=== PATIENT | male | born 1960 | race Caucasian/White ===

== ENCOUNTER 2020-07-19 08:06 | Outpatient (CLI) | payer MEDICAID, SELFPAY ==
--- NOTE | 2020-07-19 08:30 | XR_ITS ---
WS: [id number] HIP WITH PELVIS RIGHT TECHNIQUE: 3 views of the right hip with pelvis CLINICAL INFORMATION: chronic right hip pain COMPARISON: None. FINDINGS: Postoperative changes lower lumbar spine. Mild degenerative arthritis both hips with joint space narr owing. Pelvic phleboliths. Normal pubic rami. No acute fractures. Calcification along the deep trochanteric bursae bilaterally can be seen with tro chanteric bursitis and/or gluteus medius tendinitis XR/XR hip RT 2-3V wo/w pel* [id number] IMPRESSION: 1. Mild degenerative arthritis both hips. No acute fractures. 2. Ossification along the deep trochanteric bursae bilaterally can be seen wit h trochanteric bursitis and/or gluteus medius tendinitis
== END 2020-07-19 08:07 | disposition home or self-care (01) ==
LOC: RADWPI 08:07
PROVIDERS: PCP Family Medicine; Visit Provider Family Medicine
DX: M16.0 Bilateral primary osteoarthritis of hip; G89.29 Other chronic pain
CPT/HCPCS: 73502

== ENCOUNTER → 2020-08-11 09:09 | Outpatient (BNVA) | payer MEDICAID, SELFPAY | PROVIDERS: PCP Family Medicine; Visit Provider Family Medicine | DX: Z11.59 Encounter for screening for other viral diseases (principal) | CPT/HCPCS: 87635 ==

== ENCOUNTER 2020-08-15 09:42 | Outpatient (CLI) | payer MEDICAID, SELFPAY ==
--- NOTE | 2020-08-15 14:10 | PFTS_ITS ---
Date of Study:08/15/20 Date of Dictation: MECHANICS: Forced vital capacity (FVC) is normal. Forced expiratory volume in one second (FEV1) is reduced. FEV1/FVC is reduced. FLOW VOLUME LOOP: Reduced lateral lung volumes. LUNG VOLUMES: Not measured DIFFUSING CAPACITY FOR CARBON MONOXIDE: Not measured INTERPRETATION: The postbronchodilator spirometry is consistent with moderate airflow obstruction. There is no significant postbronchodilator response. MTDD
== END 2020-08-15 09:43 | disposition home or self-care (01) ==
LOC: RT 09:44
PROVIDERS: PCP Family Medicine; Visit Provider Family Medicine
DX: R06.2 Wheezing (principal)
CPT/HCPCS: 94060; J7611

== ENCOUNTER → 2020-08-17 13:33 | Outpatient (BNVA) | payer MEDICAID, SELFPAY | PROVIDERS: PCP Family Medicine; Referring Provider Family Medicine; Visit Provider Anesthesiology Pain Medicine | DX: M25.551 Pain in right hip (principal); M19.90 Unspecified osteoarthritis, unspecified site; M54.16 Radiculopathy, lumbar region; M96.1 Postlaminectomy syndrome, not elsewhere classified; R06.2 Wheezing; F17.219 Nicotine dependence, cigarettes, with unspecified nicotine-induced disorders | CPT/HCPCS: 99204 ==

== ENCOUNTER 2020-08-22 11:15 | Outpatient (CLI) | payer MEDICAID, SELFPAY ==
--- NOTE | 2020-08-22 11:30 | XR_ITS ---
WS: [id number] LUMBAR SPINE: 5 VIEWS TECHNIQUE: AP, obliques, lateral and L5-S1 spot. HISTORY: pain COMPARISON: 05/18/2019 Prior lumbar fusion at L5-S1 with interbody spacer mild RIGHT convex curvature lumbar spine and mild straightening. Foraminal narrowing is mild at L4-5 and L5-S1. L5 anterolisthesis by 5 mm. No change i n position of the hardware. Multilevel mild disc space narrowing and desiccation. Small endplate osteophytes at all levels. SI joints are symmetric bilaterally. No soft tissue abnormalities. XR/XR lumbar spine min 4V [id number] IMPRESSION: 1. Moderate spondylitic changes in the lumbar spine. 2. Fusion hardware at L5-S1 is very similar in appearance to the prior study w ith no interval change. 3. Mild degenerative RIGHT convex curvature.
== END 2020-08-22 11:16 | disposition home or self-care (01) ==
LOC: RADWPI 11:18
PROVIDERS: PCP Family Medicine; Visit Provider Anesthesiology Pain Medicine
DX: M54.5 Low back pain (principal); M25.551 Pain in right hip; M96.1 Postlaminectomy syndrome, not elsewhere classified; F17.210 Nicotine dependence, cigarettes, uncomplicated
CPT/HCPCS: 20610; 72114; 77002; 77003; J1030; J3490

== ENCOUNTER → 2020-09-07 10:51 | Outpatient (BNVA) | payer MEDICAID, SELFPAY | PROVIDERS: PCP Family Medicine; Visit Provider Anesthesiology Pain Medicine | DX: M25.551 Pain in right hip (principal); F17.219 Nicotine dependence, cigarettes, with unspecified nicotine-induced disorders; R06.2 Wheezing; M19.90 Unspecified osteoarthritis, unspecified site; M96.1 Postlaminectomy syndrome, not elsewhere classified; M54.16 Radiculopathy, lumbar region; Z79.891 Long term (current) use of opiate analgesic | CPT/HCPCS: 99214 ==

== ENCOUNTER 2020-09-19 08:52 | Outpatient (CLI) | payer MEDICAID, SELFPAY ==
--- NOTE | 2020-09-19 08:57 | MR_ITS ---
WS: [id number] MRI LUMBAR SPINE WITH AND WITHOUT CONTRAST. HISTORY: Pain, leg numbness. COMPARISON: 07/04/2020 TECHNIQUE: Sagittal and axial multisequence imaging is submitted. Sagittal and axial T1 fat sat seque nces post-ProHance 13 cc IV. Mild increase in the upper thoracic kyphosis. Straightening of the normal lumbar lordosis. Prior posterior LEFT lumbar fusion at L5-S1. Anterior fu rayray hardware at L5-S1. There is also an interbody spacer at L5-S1. Edema within the adjacent endplat es at the L4-5 level. Mild disc space narrowing and desiccation throughout the lumbar spine but most significant at L5-S1. Conus terminates normally at L1-2 disc level. L1-L2: Mild annular disc bulging and osteophytic ridging. No central stenosis. Mild bilateral foramin al narrowing. L2-L3: Mild annular disc bulging and osteophytic ridging. Fluid in the facet joints bilaterally. No s ignificant stenosis. L3-L4: Moderate annular disc bulging with facet and ligamentum flavum hypertrophy. Mild encroachment of the disc into the subarticular recesses. No significant stenosis. Mild foraminal narrowing. L4-L5: L4 retrolisthesis by 4.4 mm. There is mild annular disc bulging and osteophytic ridging. Moder ate bilateral facet joint arthropathy. Very mild central stenosis with moderate to severe bilateral f oraminal stenosis, RIGHT greater than LEFT. Large posterior laminectomy defects at the L5 level. L5-S1: Large posterior laminectomy defects at the L5 level. No central stenosis. Mildly patulous thec al sac due to the laminectomies. Very mild narrowing of the foramen bilaterally, RIGHT greater than L EFT. No discitis or osteomyelitis. Enhancement of the gliosis at the laminectomy defects at L5. Mild enhan cement of the L3 nerve roots bilaterally in the foramina. MR/MR lumbar spine wo/w con [id number] IMPRESSION: 1. Prior anterior and LEFT posterior fusion hardware at L5-S1 with large poste rior laminectomy defects. No central stenosis at the L5-S1 level. 2. Moderate to severe bilateral foraminal stenosis and mild central stenosis a t L4-5. 3. Mild bilateral foraminal stenosis at L5-S1, RIGHT greater than LEFT.
== END 2020-09-19 08:53 | disposition home or self-care (01) ==
LOC: RADSHAW 08:54
PROVIDERS: PCP Family Medicine; Visit Provider Anesthesiology Pain Medicine
DX: M96.1 Postlaminectomy syndrome, not elsewhere classified (principal); Z98.890 Other specified postprocedural states; R20.0 Anesthesia of skin; M48.07 Spinal stenosis, lumbosacral region; M48.061 Spinal stenosis, lumbar region without neurogenic claudication; M43.27 Fusion of spine, lumbosacral region
CPT/HCPCS: 72158; A9579

== ENCOUNTER → 2020-09-21 08:39 | Outpatient (BNVA) | payer MEDICAID, SELFPAY | PROVIDERS: PCP Family Medicine; Visit Provider Anesthesiology Pain Medicine | DX: M51.17 Intervertebral disc disorders with radiculopathy, lumbosacral region (principal); M96.1 Postlaminectomy syndrome, not elsewhere classified; M19.90 Unspecified osteoarthritis, unspecified site; M79.651 Pain in right thigh; M25.551 Pain in right hip; R06.2 Wheezing; F17.219 Nicotine dependence, cigarettes, with unspecified nicotine-induced disorders; Z79.891 Long term (current) use of opiate analgesic | CPT/HCPCS: 99214 ==

== ENCOUNTER → 2020-10-03 11:09 | Outpatient (BNVA) | payer MEDICAID, SELFPAY | PROVIDERS: PCP Family Medicine; Visit Provider Anesthesiology Pain Medicine | DX: G89.29 Other chronic pain (principal); M54.16 Radiculopathy, lumbar region; M79.651 Pain in right thigh; M25.551 Pain in right hip; M19.91 Primary osteoarthritis, unspecified site; M96.1 Postlaminectomy syndrome, not elsewhere classified; R06.2 Wheezing; F17.219 Nicotine dependence, cigarettes, with unspecified nicotine-induced disorders; Z79.891 Long term (current) use of opiate analgesic | CPT/HCPCS: 64483; 64484; 99212; J1100; J3490 ==

== ENCOUNTER → 2020-10-17 10:50 | Outpatient (BNVA) | payer MEDICAID, SELFPAY | PROVIDERS: PCP Family Medicine; Visit Provider Anesthesiology Pain Medicine | DX: G89.29 Other chronic pain (principal); M51.17 Intervertebral disc disorders with radiculopathy, lumbosacral region; M96.1 Postlaminectomy syndrome, not elsewhere classified; M19.90 Unspecified osteoarthritis, unspecified site; M79.651 Pain in right thigh; M25.551 Pain in right hip; R06.2 Wheezing; F17.219 Nicotine dependence, cigarettes, with unspecified nicotine-induced disorders; Z79.891 Long term (current) use of opiate analgesic | CPT/HCPCS: 99214 ==

== ENCOUNTER 2020-10-25 20:01 | Emergency (ER) | payer MEDICAID, SELFPAY ==
[2020-10-25 20:06] VITALS: BP 107/68; PULSE 77; RESP 18; TEMP 36.3; O2SAT 96; BMI 23.0
--- NOTE | 2020-10-25 20:09 | W.ED.BACK ---
HPI - Back Pain/Injury General: Chief Complaint: Back Pain/Injury Stated Complaint: Back pain Time Seen by Provider: 10/25/20 20:09 History of Present Illness: HPI Narrative: Patient is a 60-year-old male comes to the ED with acute on chronic back pain. Patient sees pain management clinic and was last seen on October 17. Patient has a history of lumbar spine fusion surgery. He states that yesterday he lifted something that was heavier and that he thinks he probably should not of. Today he is having increased lower back pain. Pain is rated a 10 out of 10. It starts in the right lower back and then pain radiates down into her right leg and stops at the knee. Denies any pelvic anesthesia, bladder or bowel incontinence. Associated symptoms: Deny abdominal pain, chills, dysuria, fatigue, fever(s), hematuria, nausea or vomiting Review of Systems Const: Denies: fever(s), chills or fatigue Eyes: Denies: change in vision or eye discomfort ENMT: Denies: throat pain, odynophagia, nasal discharge or nasal congestion Card: Denies: chest pain, palpitations, edema, swelling of feet/ankles, dyspnea on exertion or orthopnea Resp: Denies: dyspnea, productive cough or non-productive cough GI: Denies: abdominal pain, nausea, vomiting, diarrhea, constipation or hematochezia : Denies: flank pain, difficulty urinating, dysuria or hematuria Musc: Reports: back pain; Denies: neck pain or extremity swelling Skin/Breast: Denies: rash or new lesions Neuro: Denies: headache(s), numbness in extremities or weakness in extremities PFS ED PFSH: Medical History Chronic low back pain Right thigh pain Surgical History History of back surgery He has L1-S5 fused in [place] Social History Smoking and tobacco status: current every day smoker cigarettes Packs smoked per day: 1.5 Alcohol intake: current Alcohol intake frequency: 3 or more drinks per day Alcohol type: beer Lives independently: Yes History of recent travel: No Physical Exam Const: COMMON NORMALS: no acute distress, patient oriented x3 and alert GENERAL APPEARANCE: cooperative and comfortable HENMT: COMMON NORMALS: normocephalic HEAD & SCALP: normocephalic MOUTH: Normal oral and palatal mucosa present THROAT: posterior oropharynx normal and uvula midline Neck/C-Spine: COMMON NORMALS: supple GENERAL: Yes normal visual inspection Resp: COMMON NORMALS: normal respiratory effort, No retractions, No use of accessory muscles and clear to auscultation bilaterally AUSCULTATION: clear to auscultation bilaterally Cardio: COMMON NORMALS: regular rate, regular rhythm, S1 normal heart sound present, S2 normal heart sound present, No gallops present (Cardio), No clicks present (Cardio), No murmurs present (Cardio) and Peripheral pulses 2+ throughout RATE: regular rate RHYTHM: regular rhythm HEART SOUNDS: S1 normal heart sound present and S2 normal heart sound present PERIPHERAL PULSES: Peripheral pulses 2+ throughout GI: COMMON NORMALS: Normal to inspection, nondistended, normoactive bowel sounds present, Soft to palpation, non-tender and no masses PALPATION: Yes Soft to palpation : COMMON NORMALS: Yes no CVA tenderness BLADDER/KIDNEY EXAM: Yes no CVA tenderness Back/Pelvis: COMMON NORMALS: no CVA tenderness LUMBAR SPINE/LOWER BACK: Yes pain with ROM, No lumbar spinal tenderness and Yes paraspinal muscle tenderness Extremity: COMMON NORMALS: normal to inspection Neuro: COMMON NORMALS: patient oriented x3 and moves all extremities SENSORIUM/ORIENTATION: Yes alert Skin: GENERAL SKIN EXAM: dry skin Course Vital Signs: Vital signs: Vital Signs Temperature 97.4 F L 10/25/20 20:06 Pulse Rate 77 10/25/20 20:06 Respiratory Rate 18 10/25/20 20:52 Blood Pressure 107/68 10/25/20 20:06 Pulse Oximetry 98 10/25/20 20:52 MDM - Back Pain/Injury MDM Narrative: Medical decision making narrative: Patient is a 60-year-old male with acute on chronic lower back pain. Patient sees pain management for lower back pain. 2 days ago patient lifted something heavy that he probably showed no evidence ever since then he said lower back pain that radiates down into right leg. No cauda equina symptoms. Patient was given a shot of morphine while here in the ED and sent home with a prescription for Medrol Dosepak. He was told to continue taking his previously prescribed pain meds and muscle relaxer to help with symptoms. Return to ED precautions given. Follow-up with pain management at next scheduled appointment. Patient understood agree with plan. Discharge Plan Discharge Patient Disposition: Home Clinical Impression: Lumbar radiculopathy Chronic lower back pain Qualifiers: Back pain laterality: bilateral Sciatica presence: with sciatica Sciatica laterality: sciatica of right side Qualified Code(s): M54.41 - Lumbago with sciatica, right side Condition: Stable Prescriptions: New methylprednisolone 4 mg tablets,dose pack See Rx Instructions .ROUTE .COMPLEX Qty: 21 RF: 0 No Action tizanidine 4 mg tablet 4 mg PO BID PRN (Reason: muscle spasticity) Qty: 60 RF: 0 tramadol 50 mg tablet 50 mg PO BID PRN (Reason: pain) 30 Days Qty: 60 RF: 0 gabapentin 600 mg tablet 600 mg PO TID Qty: 90 RF: 0 albuterol sulfate [ProAir HFA] 90 mcg/actuation HFA aerosol inhaler 2 puff INHALATION QID PRN (Reason: shortness of breath or wheezing) Qty: 8.5 RF: 5 budesonide-formoterol [Symbicort] 160-4.5 mcg/actuation HFA aerosol inhaler 2 puff INHALATION BID Qty: 10.2 RF: 5 Spiriva with HandiHaler 18 mcg capsule, w/inhalation device 1 cap inhalation DAILY Qty: 30 RF: 3 meloxicam [Mobic] 15 mg tablet 15 mg PO DAILY Qty: 30 RF: 1 Discharge Orders: Discharge ED (Routine); Ordered 10/25/20 Ordered By: Gio Cotton Referrals: Helen Chanel DO [Primary Care Provider] - Discharge Diet: Regular Discharge Activity: Increase activity as tolerated Patient Instructions: Lumbar Radiculopathy (ED) Activity Restrictions/Additional Instructions: Follow-up with medical provider as directed. Take medications as prescribed. Continue taking all other previously prescribed pain medications. Rest and apply ice or heat to lower back to help with symptoms. Return to the ER or your medical provider if condition worsens. Please read and understand discharge instructions. If any questions, please ask. Coding Level of Care Code ED [employer] for Brianna Fwd Exam Comprehensive
[2020-10-25 20:52] VITALS: RESP 18; O2SAT 98
[2020-10-25] MEDS: morphine 4 mg/mL SDV 1 mL IM (20:52)
[2020-10-25] MEDS: HYDROcodone-acetaminophen 7.5-325 mg Tablet 2 TAB PO (20:52)
[2020-10-25] MEDS: predniSONE 20 mg Tablet 60 MG PO (20:53)
== END 2020-10-25 21:01 | disposition home or self-care (01) ==
LOC: ER 20:47
PROVIDERS: Emergency Provider Physician Assistant; PCP Family Medicine
DX: M54.41 Lumbago with sciatica, right side (principal); G89.29 Other chronic pain; M54.16 Radiculopathy, lumbar region; F17.210 Nicotine dependence, cigarettes, uncomplicated
CPT/HCPCS: 12345; 96372; 99281; 99283; J2270; J7512

== ENCOUNTER → 2020-11-14 08:42 | Outpatient (BNVA) | payer MEDICAID, SELFPAY | PROVIDERS: PCP Family Medicine; Visit Provider Anesthesiology Pain Medicine | DX: G89.29 Other chronic pain (principal); M25.562 Pain in left knee; M48.062 Spinal stenosis, lumbar region with neurogenic claudication; M51.17 Intervertebral disc disorders with radiculopathy, lumbosacral region; M96.1 Postlaminectomy syndrome, not elsewhere classified; M19.90 Unspecified osteoarthritis, unspecified site; M79.651 Pain in right thigh; M25.551 Pain in right hip; R06.2 Wheezing; F17.219 Nicotine dependence, cigarettes, with unspecified nicotine-induced disorders; Z79.891 Long term (current) use of opiate analgesic | CPT/HCPCS: 20610; 99214; 99215; J1030; J3490 ==

== ENCOUNTER → 2020-11-24 09:49 | Outpatient (BNVA) | payer MEDICAID, SELFPAY | PROVIDERS: PCP Family Medicine; Referring Provider Anesthesiology Pain Medicine; Visit Provider Orthopaedic Surgery | DX: M54.16 Radiculopathy, lumbar region (principal); M25.569 Pain in unspecified knee | CPT/HCPCS: 72114; 73560; 73565 ==

== ENCOUNTER → 2020-12-05 10:03 | Outpatient (BNVA) | payer MEDICAID, SELFPAY | PROVIDERS: PCP Family Medicine; Referring Provider Orthopaedic Surgery; Visit Provider Orthopaedic Surgery | DX: Z01.812 Encounter for preprocedural laboratory examination (principal); M25.569 Pain in unspecified knee; M54.16 Radiculopathy, lumbar region | CPT/HCPCS: 87635 ==

== ENCOUNTER 2020-12-11 09:38 | Day surgery (SDC) | payer MEDICAID, SELFPAY ==
[2020-12-08 13:35] VITALS: BMI 23.0
--- NOTE | 2020-12-11 | SCC_ITS ---
Procedure Done: L3/4 Laminectomy with bilateral decompression L4/5 Laminectomy with bilateral decompression 28.8 seconds of fluoroscopic guidance, for a cumulative dose of 5.97mGy, was provided to Dr. French by the radiology department. C-arm images of the lumbar spine were saved for the patient's permanent record. [facility]
[2020-12-11] MEDS: sodium chloride 0.9% 1,000 ML 30 ML IV (10:13)
[2020-12-11 10:15] VITALS: BP 127/96; PULSE 79; RESP 18; TEMP 36.2; O2SAT 97
--- NOTE | 2020-12-11 10:27 | W.PM.OPSUD ---
Surgery/Procedure H&P Update DATE OF PROCEDURE: December 11, 2020 DATE H&P PERFORMED: 12/05/20 H&P UPDATE INFORMATION: I have reviewed H&P completed within last 30 days, I have examined patient prior to procedure and No changes to prior documentation PREOP DIAGNOSIS: lumbar stenosis PLANNED PROCEDURE: Operation Date: 12/11/20 11:20 Proposed Procedures p L 3/4 L4/5 BILATERAL DECOMPRESSION [id number] M48.061(Not Applicable) - Nelson French DO
--- NOTE | 2020-12-11 10:42 | P.ANESASSM_ITS ---
Pre-Anesthetic Assessment Pre-Anesthetic Assessment: Height/Weight: Height 1.63 m Weight 60.781 kg Temp Pulse Resp BP Pulse Ox 97.1 F L 79 18 127/96 97 12/11/20 10:15 12/11/20 10:15 12/11/20 10:15 12/11/20 10:15 12/11/20 10:15 Preop Diagnosis: lumbar stenosis Proposed Procedure: Operation Date: 12/11/20 11:20 Proposed Procedures p L 3/4 L4/5 BILATERAL DECOMPRESSION [id number] M48.061(Not Applicable) - Nelson French, DO Was Beta Randi taken within 24 hours: N/A Last intake: Intake Last Liquid Date 12/11/20 Last Liquid Time 07:00 Last Solid Date 12/10/20 Social: Social History: Alcohol and Tobacco Exam: Pre-Anes Outpt Exam: alert, oriented x 3 and regular rate & rhythm A dditional Exam Findings (including area of procedure): rhonchi Airway: Submandibular: WNL Cervical ROM: WNL MP: 2 Additional comments: edentulous Pulmonary: Pulmonary: COPD Musc/skel: Musc/skel: Lower Back Pain Comments: Chronic pain Anesthetic Plan: ASA status: 3 Anesthesia: General Risk of > 500 ml blood loss (7ml/kg in children): No Meds/Allergies Current Medications: Current Medications Generic Name Dose Route Start Last Admin Trade Name Freq PRN Reason Stop Dose Admin Sodium Chloride 1,000 mls @ 30 ml s/hr 12/11/20 10:00 12/11/20 10:13 Sodium Chloride 0.9% IV 12/12/20 09:59 30 mls/hr .Q24H THALIA Administration PFSH Anesthesia PFSH: Medical History Chronic low back pain Right thigh pain Surgical History History of back surgery He has L1-S5 fused in [place] Social History Smoking and tobacco status: current every day smoker cigarettes Packs smoked per day: 1.5 Alcohol intake: current Alcohol intake frequency: 0-2 Drinks per Day Alcohol type: beer Lives independently: Yes History of recent travel: No Data Anesthesia Cardiac Studies: No Data to Display
--- NOTE | 2020-12-11 11:20 | XR_ITS ---
WS: [id number] INTRAOPERATIVE TECHNIQUE: 5 Spot fluoroscopic images for intraoperative purposes. FLUOROSCOPY TIME: 28.8 seconds CLINICAL INFORMATION: BILATERAL DECOMPRESSION COMPARISON: None. FINDINGS: Localization marker over the L4-5 interspace dorsally Prior postoperative changes pedicle screw fixation L5-S1 with interbody fusion graft. Anterior screw fixation. Grade 1 anterolisthesis L5 on S1. XR/XR lumbar spine 2-3V* [id number] IMPRESSION: Images obtained for intraoperative purposes.
--- NOTE | 2020-12-11 12:23 | P.OP_ITS ---
Operative Report Date of procedure: December 11, 2020 Pre-op Diagnosis: lumbar stenosis Procedure Done: L3/4 Laminectomy with bilateral decompression L4/5 Laminectomy with bilateral decompression Surgeon: Nelson French Anesthesia: General Estimated blood loss (mL): 20 Condition: stable Disposition: PACU Procedure: L3/4 Laminectomy with bilateral decompression L4/5 Laminectomy with bilateral decompression Patient is brought to the operative suite. After undergoing anesthesia they are placed in the supine position. All areas of impingement are well padded. Patient is then prepped and draped in the normal sterile fashion. A skin incision is made over the L3/4/5 level. This is confirmed under c-arm guidance. A series of dilators are passed and the tubular retractor is docked on the L3 lamina. A bovie is used to clear the soft tissue off the lamina and the L 3/4 facet joint. A high speed marija is then used to perform the laminectomy and take down the medial aspect of the L 3/4 facet joint. A kerrison rongeure was then used to take down the remaining lamina and smooth the edged of the laminectomy up to the point where the ligamentum flavum attaches. Attention was then brought to the medial aspect of the facet joint. The remaining medial aspect of the superior and inferior aspect of the facet joint were taken down with the kerrison from the pedicle of L3 to L 4. The facet joint had significant hypertrophy. Attention was then brought to the Ligamentum Flavum. The ligament was taken down from the lamina of L3 to L4 and out medially to the remaining facet joint. The ligament was thick. The dura was then exposed. The dura was in good repair. The L3 nerve was then traced with a curette out the L3/4 foramen and found to be adequately decompressed. The L4 nerve was traced with a curette around the L4 pedicle. The lateral recess was opened with a kerrison helping to further decompress the L4 nerve. The tubular retractor was then tilted to the contralateral side. The bovie was used to take down the soft tissue on the spinous process. The high speed marija was used to take down the spinous process and then the contralateral lamina of L3. The kerrison rongeur was used to take down the remaining lamina to the point where the ligamentum flavum attached and the ligamentum flavum was taken down from L3 to L4. The kerrison rongeur was then used to reach across and take down the medial aspect of the contralateral L3/4 facet joint.The currete was used to trace the contralateral L3 nerve out the L3/4 foramen to make sure it was decompressed adequatesly and the L4 was traced around the L4 pedicle. The lateral recess was opened further with the kerrison to ensure the L4 is adequately decompressed. A series of dilators are passed and the tubular retractor is docked on the L4 lamina. A bovie is used to clear the soft tissue off the lamina and the L 4/5 f acet joint. A high speed marija is then used to perform the laminectomy and take down the medial aspect of the L 4/5 facet joint. A kerrison rongeure was then used to take down the remaining lamina and smooth the edged of the laminectomy up to the point where the ligamentum flavum attaches. Attention was then brought to the medial aspect of the facet joint. The remaining medial aspect of the superior and inferior aspect of the facet joint were taken down with the kerrison from the pedicle of L4 to L 5. The facet joint had significant hypertrophy. Attention was then brought to the Ligamentum Flavum. The ligament was taken down from the lamina of L4 to L5 and out medially to the remaining facet joint. The ligament was thick. The dura was then exposed. The dura was in good repair. The L3 nerve was then traced with a curette out the L4/5 foramen and found to be adequately decompressed. The L5 nerve was traced with a curette around the L5 pedicle. The lateral recess was opened with a kerrison helping to further decompress the L5 nerve. The tubular retractor was then tilted to the contralateral side. The bovie was used to take down the soft tissue on the spinous process. The high speed marija was used to take down the spinous process and then the contralateral lamina of L4. The kerrison rongeur was used to take down the remaining lamina to the point where the ligamentum flavum attached and the ligamentum flavum was taken down from L4 to L5. The kerrison rongeur was then used to reach across and take down the medial aspect of the contralateral L4/5 facet joint.The currete was used to trace the contralateral L3 nerve out the L3/4 foramen to make sure it was decompressed adequatesly and the L5 was traced around the L5 pedicle. The lateral recess was opened further with the kerrison to ensure the L5 is adequately decompressed. Wound is then irrigated copiously with saline and surgiflo is used to stop any bleeding. The tubular retractor is removed and the wound is closed with vicryl and monocryl suture. Glue is then used to protect the wound. A sterile dressing is then placed. Patient was then placed in the supine position and transferred to the PACU in stable condition.
[2020-12-11 12:32] VITALS: BP 174/91; PULSE 90; RESP 20; TEMP 36.3; O2SAT 100
[2020-12-11 12:35] VITALS: BP 162/89; PULSE 92; RESP 18; O2SAT 99
[2020-12-11 12:40] VITALS: BP 162/96; PULSE 94; RESP 17; O2SAT 100
[2020-12-11 12:45] VITALS: BP 184/99; PULSE 91; RESP 18; O2SAT 100
[2020-12-11 12:50] VITALS: BP 179/97; PULSE 90; RESP 18; TEMP 36.6; O2SAT 100
[2020-12-11] MEDS: HYDROcodone-acetaminophen 5-325 mg Tablet 1 TAB PO (13:26)
--- NOTE | 2020-12-11 14:45 | ANE.PACU2 ---
Inpatient post-anesthesia follow up: Airway intact: Yes Vital signs: Temperature 97.9 F Pulse Rate 90 Respiratory Rate 18 Blood Pressure 179/97 Pulse Oximetry 100 Oxygen Delivery Me thod Room Air Oxygen Flow Rate 8 Fraction of Inspir ed Oxygen Hydration adequate: Yes Nausea and vomiting: No Pain level: 3 Mental status: Baseline
== END 2020-12-11 14:02 | disposition home or self-care (01) ==
PROVIDERS: PCP Family Medicine; Visit Provider Orthopaedic Surgery
PROC: (CPT 63005; principal; 2020-12-11 11:10)
DX: M48.061 Spinal stenosis, lumbar region without neurogenic claudication (principal); J44.9 Chronic obstructive pulmonary disease, unspecified; F17.210 Nicotine dependence, cigarettes, uncomplicated; G89.29 Other chronic pain; M54.5 Low back pain; Z79.891 Long term (current) use of opiate analgesic
CPT/HCPCS: 63047; 63048; 12345; 72100; 76000; J0131; J0690; J1100; J2370; J2405; J2704; J3010; J3490; J7030

== ENCOUNTER → 2021-10-19 11:47 | Outpatient (BNVA) | payer MEDICARE, MEDICAID, SELFPAY | PROVIDERS: PCP Family Medicine; Visit Provider Family Medicine | DX: R35.1 Nocturia (principal); Z13.6 Encounter for screening for cardiovascular disorders | CPT/HCPCS: 80053; 80061; 84153; 85025 ==

== ENCOUNTER → 2021-11-01 09:29 | Outpatient (BNVA) | payer MEDICARE, MEDICAID, SELFPAY | PROVIDERS: PCP Family Medicine; Referring Provider Family Medicine; Visit Provider Orthopaedic Surgery | DX: M48.062 Spinal stenosis, lumbar region with neurogenic claudication (principal); Z98.890 Other specified postprocedural states | CPT/HCPCS: 72110 ==

== ENCOUNTER 2021-12-21 11:17 | Outpatient (CLI) | payer MEDICARE, MEDICAID, SELFPAY ==
--- NOTE | 2021-12-21 11:29 | MR_ITS ---
WS: [id number] MRI LUMBAR SPINE WITH AND WITHOUT CONTRAST. HISTORY: Bilateral hip pain. LEFT sciatic pain for one month. RIGHT hamstring pain. Prior lumbar surg cheryle January 2021. COMPARISON: 09/19/2020 TECHNIQUE: Sagittal and axial multisequence imaging is submitted. Sagittal and axial T1 fat sat seque nces post-MultiHance 13 cc IV. Posterior lumbar fusion at L5-S1 with anterior fusion hardware also at L5-S1 with an interbody spacer . There is a large laminectomy defect at the L5-S1 level. Mild straightening of the normal lumbar lordosis. 2 mm retrolisthesis of L2 and L3. Severe disc space narrowing at L4-5 and moderate at L5-S1. There is a small amount of reactive marrow edema along the endplates of L4 and L5 with mild progression since the prior study. Reactive marrow edema along the adjacent anterior endplates of L1-2. No acute fracture. Conus terminates normally at L1-2 disc level. L1-L2: Mild annular disc bulging and osteophytic ridging. Mild ligamentum flavum and facet arthritis. Very minimal bilateral foraminal narrowing. L2-L3: Mild diffuse annular disc bulging and facet arthritis. No focal disc protrusions or high-grade stenosis. Mild LEFT foraminal stenosis. L3-L4: Diffuse annular disc bulging and osteophytic ridging. Bilateral ligamentum flavum and facet hy pertrophy. Progression of central canal stenosis since the prior study. There is a small RIGHT hemila minectomy defect. Mild bilateral subarticular recess and foraminal stenosis with mild to moderate joy tral stenosis. L4-L5: Diffuse annular disc bulging. Mild retrolisthesis of the L4 vertebral body. There is disc bulg ing centrally contacting the ventral thecal sac but similar to the prior study. This disc does not en ghanshyam. Disc extends into the subarticular recesses bilaterally. Mild central stenosis with moderate b ilateral foraminal stenosis, RIGHT greater than LEFT due to disc and osteophyte and facet disease. Si milar to the prior study. Mild trefoil appearance of the thecal sac is developing and there is a post erior laminectomy defect. Nerve roots are slightly clumped within the thecal sac. L5-S1: Mild annular disc bulging and osteophytic ridging. Posterior laminectomy defect. Mild clumping of the nerve roots in the thecal sac. Mild bilateral foraminal stenosis. Similar to the prior study. No discitis or osteomyelitis. There is mild enhancement surrounding the facet joints at L3-4, L4-5 an d L5-S1. The central disc at L4-5 does not enhance. MR/MR lumbar spine wo/w con [id number] IMPRESSION: 1. Status post anterior and posterior lumbar fusion at L5-S1. Additional inter body spacers also present at this level. 2. No discitis or osteomyelitis. 3. Mild central stenosis with moderate bilateral foraminal stenosis RIGHT gre ater than LEFT at L4-5. Mild progression of the central stenosis since the prio r study. Posterior laminectomy defect is noted. 4. 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 5. Mild bilateral foraminal stenosis at L5-S1 with prior laminectomy defect po steriorly. 6. Reactive marrow edema along the endplates of L4 and L5 similar to the prior study. 7. Mild to moderate central stenosis at L3-4 with mild bilateral subarticular recess and foraminal stenosis. Central stenosis has progressed since 09/19/2020 .
[2021-12-21] MEDS: gadobenate dimeglumine 20 mL vial IV (12:58)
== END 2021-12-21 11:18 | disposition home or self-care (01) ==
LOC: RAD 11:25
PROVIDERS: PCP Family Medicine; Visit Provider Orthopaedic Surgery
DX: M48.062 Spinal stenosis, lumbar region with neurogenic claudication (principal); M25.551 Pain in right hip; M25.552 Pain in left hip; M48.07 Spinal stenosis, lumbosacral region
CPT/HCPCS: 72158

== ENCOUNTER → 2022-02-13 13:15 | Outpatient (BNVA) | payer MEDICARE, MEDICAID, SELFPAY | PROVIDERS: PCP Family Medicine; Visit Provider Orthopaedic Surgery | DX: J44.9 Chronic obstructive pulmonary disease, unspecified (principal) | CPT/HCPCS: 87635 ==

== ENCOUNTER 2022-03-13 06:00 | Outpatient (RCR) | payer MEDICARE, MEDICAID, SELFPAY | END 2022-04-02 23:59 | disposition home or self-care (01) | LOC: TPT 06:00 | PROVIDERS: PCP Family Medicine; Referring Provider Orthopaedic Surgery; Visit Provider Orthopaedic Surgery | DX: M48.062 Spinal stenosis, lumbar region with neurogenic claudication (principal) | CPT/HCPCS: 97032; 97110; 97140; 97163 ==

== ENCOUNTER 2022-04-03 06:00 | Outpatient (RCR) | payer MEDICARE, MEDICAID, SELFPAY | END 2022-04-17 23:59 | disposition home or self-care (01) | LOC: TPT 06:00 | PROVIDERS: PCP Family Medicine; Referring Provider Orthopaedic Surgery; Visit Provider Orthopaedic Surgery | DX: M48.062 Spinal stenosis, lumbar region with neurogenic claudication (principal) | CPT/HCPCS: 97032; 97110 ==

== ENCOUNTER → 2022-04-25 07:43 | Outpatient (BNVA) | payer MEDICARE, MEDICAID, SELFPAY | PROVIDERS: PCP Family Medicine; Visit Provider Orthopaedic Surgery | DX: M48.062 Spinal stenosis, lumbar region with neurogenic claudication (principal); Z98.1 Arthrodesis status | CPT/HCPCS: 99214 ==

== ENCOUNTER 2022-05-29 13:50 | Inpatient (IN) | payer MEDICARE, MEDICAID, SELFPAY ==
[2022-05-23 10:09] VITALS: BMI 20.9
--- NOTE | 2022-05-23 10:39 | ANES.PREANE2 ---
Pre-Anesthetic Assessment Height/Weight: Height 1.63 m Weight 55.338 kg Preop Diagnosis: Lumbar stenosis w/Neurogenic Claudication, DDD lumbar spine Operation Date: 05/29/22 07:30 Proposed Procedures p Lumbar Fusion(Not Applicable) - Nelson French DO s Lumbar Spine Decompression(Not Applicable) - Nelson French DO Operation Date: 05/29/22 07:00 Proposed Procedures p Lumbar Fusion(Not Applicable) - Nelson French DO s Lumbar Spine Decompression(Not Applicable) - Nelson French DO Familial anesthetic complications: none Was Beta Randi taken within 24 hours: N/A Was Clonidine taken within 24 hours: N/A Social Alcohol and Tobacco Exam alert, oriented x 3 and regular rate & rhythm rhonchi Airway Submandibular: within normal limits Cervical ROM: within normal limits Mallampati: Class II Dentition: false Comments: Comments: coombs Pulmonary Chronic Obstructive [place] [facility] [place] [place] Back Pain and Osteoarthritis/DJD Anesthetic Plan ASA status: 3 Anesthesia: General Medications/Allergies Home Medications Medication Instructions Recorded Confirmed Last Taken Type albuterol sulfate 90 mcg/actuation 2 inh INHALATION Q4-5H PRN 05/23/22 05/23/22 Unknown History aerosol inhaler fluticasone fur. 100 mcg-umeclid 1 inh INHALATION DAILY 05/23/22 05/23/22 Unknown History 62.5 mcg-vilant 25 mcg inhalat.powder (Trelegy Ellipta) meloxicam 15 mg tablet 15 mg PO DAILY 05/23/22 05/23/22 Unknown History Allergies Allergy/AdvReac Type Severity Reaction Status Date / Time codeine AdvReac Mild HALLUCINATI Verified 05/23/22 10:06 ONS varenicline [From Chantix] AdvReac DEPRESSION, Verified 05/23/22 10:06 STRANGE DREAMS [facility] Anesthesia Medical History Chronic low back pain Right thigh pain Surgical History History of back surgery He has L1-S5 fused in [place] Social History Smoking and tobacco status: current every day smoker cigarettes Packs smoked per day: 2 Years cigarettes smoked: 48 [ Other cigarette details: started age 13] Alcohol intake: current Alcohol intake frequency: 3 or more drinks per day Alcohol type: beer Lives independently: Yes History of recent travel: No Data Anesthesia Cardiac Studies: No Data to Display
[2022-05-29] VITALS (33 sets, daily range): BP systolic 91–179; BP diastolic 59–87; PULSE 68–103; RESP 16–20; TEMP 36.3–37.1; O2SAT 95–100
--- NOTE | 2022-05-29 | XR_ITS ---
WS: [id number] Exam: XR lumbar spine 2-3V* [id number] Date/Time of Exam: 05/29/2022 12:00 AM Reason For Exam: L3 to pelvis fusion Comparison 11/01/2021. Posterior interbody fusion of the spine noted from L3 to S1 with pedicle screws and posterior rods. A disc spacer is noted at L5-S1. There is anterolisthesis of L5 on S1. Additional screws bridge the L5 -S1 disc level from the anterior approach. Laminectomy from L3 to S1. XR/XR lumbar spine 2-3V* [id number] IMPRESSION: 1. Lumbosacral fusion from L3 to S1 as detailed above. 2. Grade 1 anterolisthesis of L5 on S1 with anterior fixation at this level as discussed above.
--- NOTE | 2022-05-29 06:37 | P.HP_ITS ---
Providers/Chief Complaint Primary Care Provider: Helen Chanel DO Chief Complaint: pre reg and pre op History of Present Illness Jose Rodas is a 62 year old male e staes his pain is in his lower back that radiates into his right leg. He reports numbness and tingling in his right leg. He has completed Physical Therapy. He states he noticed no improvement with physical therapy. He has a history of L3/4 L4/5 Laminectomy with bilateral decompression DOS: 12/11/20. L3-S1 revision fusion with decompression L3-4 and L4-5.? Review of Systems General: Reports: 10 or more systems reviewed and unremarkable except in HPI and below Const: Denies: fever(s) or chills Eyes: Denies: change in vision ENMT: Denies: throat pain Card: Denies: chest pain or dyspnea on exertion Resp: Denies: dyspnea GI: Denies: nausea or vomiting : Denies: difficulty urinating Musc: Reports: back pain, extremity pain and limited range of motion Skin/Breast: Denies: changes in skin color or dry skin Neuro: Reports: numbness in extremities and weakness in extremities Psych: Denies: anxiety Endo: Denies: polyuria Chay/Lymph: Denies: easy bruising or easy bleeding All/Imm: Denies: urticaria Medications/Allergies Home Medications Medication Instructions Recorded Confirmed Last Taken Type albuterol sulfate 90 mcg/actuation 2 inh inhalation Q4-5H PRN Wheezing 05/23/22 05/23/22 Unknown History aerosol inhaler fluticasone fur. 100 mcg-umeclid 1 inh inhalation DAILY 05/23/22 05/23/22 Unknown History 62.5 mcg-vilant 25 mcg inhalat.powder (Trelegy Ellipta) meloxicam 15 mg tablet 15 mg PO DAILY 05/23/22 05/23/22 Unknown History Allergies Allergy/AdvReac Type Severity Reaction Status Date / Time codeine AdvReac Mild HALLUCINATI Verified 05/23/22 10:06 ONS varenicline [From Chantix] AdvReac DEPRESSION, Verified 05/23/22 10:06 STRANGE DREAMS PFSH Acute PFSH: Medical History Chronic low back pain Right thigh pain Surgical History History of back surgery He has L1-S5 fused in [place] Social History Smoking and tobacco status: current every day smoker cigarettes Packs smoked per day: 2 Years cigarettes smoked: 48 [ Other cigarette details: started age 13] Alcohol intake: current Alcohol intake frequency: 3 or more drinks per day Alcohol type: beer Lives independently: Yes History of recent travel: No Physical Exam Narrative: CONSTITUTIONAL: The patient is a normal appearing [] in no apparent distress. GENERAL: Patient in no acute distress. CARDIAC: Regular rate and rhythm. CHEST: Normal inspiratory effort, normal respiratory rate. ABDOMEN: Soft and nontender. SKIN: Clear, warm and intact. NEURO?PSYCH: The patient is alert and oriented to person, place and time. Sensorv /SILT Motor StrengthShoulder abduction C5 5/5Wrist extension C6 5/5Elbow extension C7 5/5Hand Network Contract Manager C8 5/5Finger abduction T15/5 Radial/ Ulnar/ Median n intact LowerSensory (SILT)Motor StrengthHin flexion L2/3Ant/inner thigh 5/5Hip adduction L2/3 5/5Knee extension L4 Lat thigh, 5/5Toe dorsiflexion L5 5/5Ankle dorsiflexion L5/ V24Obiatjc flexion S1 5/5 DTRBleeps 2+Triceps 2+Brachioradialis 2+Patellar 2+Achilles 2+ MUSCULOSKELETAL: [] UPPEREXTREMITIES: The patient had full active ROM in fingers, wrist, elbow, and shoulder. The patient demonstrated ability to fully flex/extend/abduct/adduct fingers, make ok sign, cross 2nd/3rd digits, extend 1st digit fully.. Radial pulse 2+, CR<2 seconds. LOWER EXTREMITIES: Pt has full, active ROM of toes, ankle, knee, and hip. Dorsalis pedis/posterior tibialis pulses 2+, CR<2 seconds. SPINE: Skin warm, dry, intact. A&P Assessment and plan (1) Lumbar stenosis with neurogenic claudication: revision fusion Status: Acute Attestations Medical Necessity Statement*: failed conservative tx Coding Level of Care Code Acute Mounting Machine Operator for [facility] Fwd Diagnoses Lumbar stenosis with neurogenic claudication M48.062
--- NOTE | 2022-05-29 08:28 | ECG_ITS ---
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 Measurements Intervals Acra Rate: 78 P: 59 LA: 167 QRS: 17 QRSD: 87 T: 36 QT: 364 QTc: 415 Interpretive Statements SINUS RHYTHM POSSIBLE RIGHT VENTRICULAR CONDUCTION DELAY [RSR (QR) IN V1/V2] Compared to ECG 06/08/2019 10:36:55 No significant changes Electronically Signed On 05-29-2022 16:33:46 CDT by Kamran Lebron M.D. [email or web address]
--- NOTE | 2022-05-29 08:43 | ANES.PAUD2 ---
Pre-Anesthetic Update Pre-Anesthetic Assessment: Date of Surgery/Procedure: 05/29/22 Preop Diagnosis: Lumbar stenosis w/Neurogenic Claudication, DDD lumbar spine Proposed Procedure: Operation Date: 05/29/22 07:30 Proposed Procedures p Lumbar Fusion(Not Applicable) - Nelson Hinds Gillian, DO s Lumbar Spine Decompression(Not Applicable) - Nelson Hinds Gillian, DO Operation Date: 05/29/22 09:40 Proposed Procedures p Lumbar Fusion L3-Pelvis(Not Applicable) - Nelson Hinds Gillian, DO s Lumbar Spine Decompression(Not Applicable) - Nelson Hinds Gillian, DO Any changes to Pre-Anesthetic Assessment?: Yes Changes from Pre-Anesthetic Assessment: Patient has systolic ejection murmur best heard of left T2 interspace. Patient is able to go up a flight of stairs w/o CP, 3 flights without C/P but with shortness of breath and leg weakness. 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 Does not have dizzy or syncopal spells. No home O2 use. Patient states he has been told he has a murmur in the past. I discussed with patient my finding and my suspicion that he has aortic stenosis. We discussed my concern that the patient is at increased risk for a cardiovascular adverse event including stroke, CT, . We discussed option of delaying surgery for further workup, however the patient would prefer to proceed today despite increased risk. Given the patients functional capacity and prior history of murmur we will proceed with the case today. Plan GETA, 2 PIV, arterial line. Last Intake: 05/28/22 Vitals: Temperature 97.8 F 05/29/22 08:19 Temperature Source Temporal Artery S can 05/29/22 08:19 Pulse Rate 79 05/29/22 08:18 Respiratory Rate 18 05/29/22 08:18 Blood Pressure 179/87 05/29/22 08:18 Blood Pressure Tricia n 117 05/29/22 08:18 Pulse Oximetry 99 05/29/22 08:18 Oxygen Delivery Me thod 05/29/22 08:18 Exam: Pre-Anes Outpt Exam: alert, oriented x 3, clear to auscultation bilaterally and regular rate & rhythm Cardiac Studies: No Data to Display
[2022-05-29] MEDS: sodium chloride 0.9% 1,000 ML 30 ML IV (08:51)
[2022-05-29 09:03] LABS: Basophils % 0.8 %; Eosinophils % 0.8 %; Hematocrit 49.4 % (42.0-52.0); Hemoglobin 17.5 g/dL (11.7-16.6); Lymphocytes # 1.3 10^3/uL (0.8-4.8); Lymphocytes % 25.5 %; Mean Corpuscular HGB Conc 35.4 g/dL (30.0-36.0); Mean Corpuscular Hemoglobin 33.8 pg (28.0-34.0); Mean Corpuscular Volume 95.6 fl (80-94); Mean Platelet Volume 10.5 fL (7.4-10.4); Monocytes # 0.4 10^3/uL (0.2-0.9); Monocytes % 8.8 %; Neutrophils # 3.16 10^3/uL (1.8-7.7); Neutrophils % 63.3 %; Nucleated Red Blood Cells % 0 %; Platelet Count 168 10^3/cmm (130-400); Red Blood Count 5.17 10^6/uL (4.1-5.3); Red Cell Distribution Width 12.5 % (12.1-15.1)
[2022-05-29] MEDS: ceFAZolin 2,000 MG in sodium chloride 0.9% (plus) 50 ML 100 MG IV ×2 (09:22→16:39)
[2022-05-29 09:31] LABS: Anion Gap 15.5 (5-19); Blood Urea Nitrogen 15 mg/dL (8-23); Calcium 9.5 mg/dL (8.5-10.5); Carbon Dioxide 27 mmol/L (22-29); Chloride 100 mmol/L (98-107); Glomerular Filtration Rate 114.6 mL/min (90-130); Glucose 95 mg/dL (65-115); Osmolality Calculated 287 mOsm/kg (285-295); Potassium 4.5 mmol/L (3.5-5.1); Sodium 138 mmol/L (136-145)
[2022-05-29] MEDS: heparin, porcine 1,000 unit/mL INJ 10 mL 10000 UNIT IRRIGATION (10:19)
[2022-05-29] MEDS: vancomycin 1,000 MG SDV 1000 MG XX (10:21)
[2022-05-29 13:11] LABS: Basophils # 0.1 10^3/uL (0.0-0.1); Basophils % 0.8 %; Eosinophils % 0.4 %; Hematocrit 38.1 % (42.0-52.0); Hemoglobin 13.1 g/dL (11.7-16.6); Lymphocytes # 0.9 10^3/uL (0.8-4.8); Lymphocytes % 11.6 %; Mean Corpuscular HGB Conc 34.4 g/dL (30.0-36.0); Mean Corpuscular Hemoglobin 33.4 pg (28.0-34.0); Mean Corpuscular Volume 97.2 fl (80-94); Monocytes # 0.5 10^3/uL (0.2-0.9); Monocytes % 5.8 %; Neutrophils % 79.8 %; Nucleated Red Blood Cells % 0 %; Platelet Count 145 10^3/cmm (130-400); Red Blood Count 3.92 10^6/uL (4.1-5.3); Red Cell Distribution Width 12.8 % (12.1-15.1); White Blood Count 7.9 10^3/uL (4.0-10.0)
--- NOTE | 2022-05-29 13:27 | PM.OP ---
Operative Report Date of procedure: May 29, 2022 Pre-op diagnosis: Preop Diagnosis Lumbar stenosis w/Neurogenic Claudication, DDD lumbar spine Post-op diagnosis: same Procedure done: 1. L3-S1 posterior spine fusion 2. L3-S1 posterior instrumentation 3. revision L3/4 laminectomy with partial facetectomies 4. revison L4/5 laminectomy with partial facetectomies 5. Use of computer navigation/stereotactic for spine 6. Bone marrow aspirate from right iliac crest 7. use of allograft 8. use of autograft 9. removal of deep hardware from the spine Surgeon: Nelson French Utility Person: Antonio Coley Utility Person: The regional vice president surgical sales, Antonio Coley, PAC was needed for his expertise under the microscope. He was important and necessary throughout the procedure to complete in a safe and timely manner. He assisted with patient positioning prepping and draping tissue retraction suctioning of the operative field protection of the dural sac and tissue closure Estimated blood loss (mL): 1,500 Procedure: 1. L3-S1 posterior spine fusion 2. L3-S1 posterior instrumentation 3. revision L3/4 laminectomy with partial facetectomies 4. revison L4/5 laminectomy with partial facetectomies 5. Use of computer navigation/stereotactic for spine 6. Bone marrow aspirate from right iliac crest 7. use of allograft 8. use of autograft 9. removal of deep hardware from the spine Patient is brought to the operative suite after undergoing anesthesia patient was placed in the prone position. All areas appear well-padded. Neuro monitoring was attached to the patient. Patient had no issues with neuro monitoring throughout entire case. Once patient was prepped and draped a skin incision was made from L3 down to S1. Incision was made over the previous skin incision. Bovie was then used to cut down to the bone. The spinous processes were identified at L3-L4-L5 had previous laminectomy with spinous process removal. And then the sacrum was identified. Subperiosteal dissection was made out to the facet joints and to the TPs from L3-L4 and L5. And then over into the sacral ala. The previous hardware was only on the left side. 2 screws were identified. The end caps were removed. And then the luis was removed. The inside of the screw we do not have a screw removal screws are for this type of screw. We therefore had to cut the luis and screw the Back on and then back to the screws at this point. This was done at L5 and S1 on the left side. Also screws were removed and the exposure was complete. Attention was then brought to the bone marrow aspirate on the right iliac crest. The bone marrow needle was inserted into the right iliac crest 20 cc of bone marrow for removed using the region of cell bone marrow aspiration kit. This blood and bone marrow were mixed with the autograft which will be taken from the laminectomy sites and also with the ostial amp allograft. Next attention was brought to placing the fiducial for the computer navigation. The 2 pins were placed into the right iliac crest. Once these pins were placed then the fiducial was attached onto. These pins were later be removed at the end of the case. The C-arm was then brought in and spun around the patient. The information from the C-arm was then loaded in the computer and this is what is needed to provide computer navigation. Next attention was brought to placing screws. Gearshift was attached to the fiducial was used to prime the S1 pedicle. This was done bilaterally. Once the probe was placed was done under computer navigation the pedicle probe was then used to feel to ensure that there was no breach in the pedicle. And then screw was measured and the appropriate size screw was placed in the S1 pedicle. This process was repeated bilaterally at L5, L4, and L3. Once all screws were placed attention was then brought to performing the laminectomies. Spinous processes were removed with the rongeur. Then the King was used to remove the spinous processes at the bases. The microscope was brought in and high-speed bur was used to take down the lamina midline out to where previous laminectomy site was Amarjit was used to release the scar tissue off of the bone. Kerrison rongeur risks and curved curettes and high-speed bur were used to take down bone and release the L3 nerve to the L3-4 foramen bilaterally. In the L4 nerve as it went around the L4 pedicle. Same process was repeated for the L4-5 level. The laminectomy was performed in the curved curette and Kerrison rongeurs were used to take down the bone. The L4 nerve traced around the L4 pedicle at the L4-5 foramen bilaterally. And the L5 nerve was decompressed as it went around the L5 pedicle. Wound was then irrigated. Next tension was brought to placing the rods. Luis was placed bilaterally from L3 down to S1. And caps were placed at L3-L4-L5 and S1 bilaterally. Caps were then torqued down. Extension was brought to decorticating the bone. High-speed bur was used to decorticate the transverse processes bilaterally as well as the sacral ala. The transverse processes of L3-L4-L5 and the sacral ala were decorticated. Autograft from the laminectomy was packed into the lateral gutters bilaterally as well as the osteopenia. Once this was completed the wound was then closed in layered fashion prior to this the deep drain was placed and vancomycin powder was placed in the wound was closed layered 0 Vicryl in the fascia and then the skin was closed 2-0 Vicryl Monocryl suture. Sterile Steri-Strips were applied sterile dressings were applied the patient was transferred to the PACU in stable condition.
[2022-05-29] MEDS: albumin 12.5 GM/250 ML VIAL IV ×2 (13:30→14:08)
[2022-05-29] MEDS: fentaNYL 50 mcg/mL INJ 2mL IVP (13:59)
--- NOTE | 2022-05-29 14:25 | PM.PACU ---
PACU note Narrative: On arrival to PACU cuff MAP in 65-75 range, arterial line MAP in 55-65 range. Ephedrine 10 mg administered along with 250 ml 5% albumin. Arterial MAPs improved to 65-70 range. Urine output in case approx 200 ml, with EBL 1050. Urine output about 100 ml in the PACU. Patient alert and oriented to self, date, day, place, president. MAPs in 65-70 range. 25 mcg fentanyl administered. MAPs down to 55-65 mmHg on arterial line. Additional 10 mg ephedrine administered. With immediate improvement in arterial MAPs to 70s. Additional 250 ml albumin administered along. Patient requesting coffee. Sat up drinking coffee arterial MAPs in 65-75 range. Exam: awake
--- NOTE | 2022-05-29 15:17 | SUR.PHASEI ---
1327 - 1519 SCDs on pt upon arrival to the unit. Arterial line to cardiac cath lab manager. Dr Merchant present at bedside. Dr Merchant gave 10 mg of ephedrine and repeated an additiona; 10 mg at 1408. Albumin 5% in 250 mls also ordered twice while pt in PACU.
--- NOTE | 2022-05-29 15:22 | SUR.PHASEI ---
1513 Arterial line removed
[2022-05-29] MEDS: lactated ringers 1,000 ML 90 ML IV (16:39)
--- NOTE | 2022-05-29 16:41 | ANE.PACU2 ---
Inpatient post-anesthesia follow up: Airway intact: Yes Vital signs: Temperature 97.4 F Pulse Rate 82 Respiratory Rate 18 Blood Pressure 101/59 Pulse Oximetry 97 Oxygen Delivery Me thod Room Air Oxygen Flow Rate 3 Fraction of Inspir ed Oxygen Hydration adequate: Yes Nausea and vomiting: No Pain level: 6 Mental status: Baseline
[2022-05-29] MEDS: HYDROcodone-acetaminophen 5-325 mg Tablet PO ×2 (17:30→21:28)
[2022-05-29] MEDS: docusate sodium 100 mg Capsule PO (17:30)
[2022-05-29] MEDS: ketorolac 30 mg/mL INJ IVP (19:32)
[2022-05-29 20:58] LABS: Glucose Point of Care 232 mg/dL (70-110)
[2022-05-29] MEDS: morphine 4 mg/mL SDV 1 mL IVP (22:18)
[2022-05-30] MEDS: ceFAZolin 2,000 MG in sodium chloride 0.9% (plus) 50 ML 100 MG IV ×2 (00:51→09:36)
[2022-05-30] MEDS: HYDROcodone-acetaminophen 5-325 mg Tablet PO ×3 (00:51→09:36)
[2022-05-30 01:00] VITALS: BP 112/64
[2022-05-30] MEDS: lactated ringers 1,000 ML 90 ML IV (03:37)
[2022-05-30 05:01] VITALS: BP 104/57; PULSE 60; RESP 16; TEMP 36.4; O2SAT 98
[2022-05-30 05:25] VITALS: BP 110/66
--- NOTE | 2022-05-30 07:48 | P.PN_ITS ---
Documented by User: Antonio Coley PA-C 05/30/22 07:51 Subjective Subjective: POD 1 Patient resting comfortably. Reports moderate back pain. Unable to determine if his legs feel better at this time. Denies any chest pain, shortness of breath or headaches. Vitals/I&O/Wt Last Vital Signs Temp 97.6 F 05/30/22 05:01 Pulse 60 05/30/22 05:01 Resp 16 05/30/22 05:01 BP 110/66 05/30/22 05:25 Pulse Ox 98 05/30/22 05:01 O2 Del Method 05/29/22 23:00 O2 Flow Rate 3 05/29/22 20:00 05/29/22 05/30/22 05/30/22 22:59 06:59 14:59 Intake Total 1350 / 3100 2290 / 5390 Output Total 750 / 2150 Balance 600 / 950 2290 / 3240 Physical Exam Narrative: Patient presents alert and oriented x3 with a good general appearance normal mood and affect. Normal coordination normal stability. Mild tenderness around the incisional site with the incision appear to be weaned and dry. Hemovac drain and Wharton catheter is intact. No signs of erythema or drain age. No signs of infection. Patient denies any fevers or chills. 5/5 motor strength both lower extremities with negative straight leg raise bilaterally. Calves are supple no medial thigh tenderness. Pulses are 2+ at the dorsalis pedis and posterior tibial region. Good capillary refill throughout normal sensation light touch both lower extremities. Urinary Catheter Management: Wharton: Cath Placed During This Visit: yes Reason for Continuing Indwelling Catheter: Perioperative Use in Selected Surgeries Urinary Catheter Date of Insertion: 05/29/22 Urinary Catheter Time of Insertion: 09:30 Data : 05/29/22 12:14 05/29/22 08:47 A&P Assessment and plan (1) Status post lumbar spinal fusion: Physical therapy to mobilize and consult. We will discontinue the Hemovac drain and Wharton catheters this morning. As long as he is mobilizing the halls and physical therapy agrees that he is stable will discharge home with restrictions of no bending lifting or twisting only walking program. Encourage incentive spirometry at home as well. Discussed smoking cessation. We will see him back in 1 week's time for wound check in the office. We will call if he is having problems. Status: Acute Attestations Medical Necessity Statement*: home later this AM Coding Level of Care Code Acute Organic Preparation Technician for [facility] Fwd Diagnoses Status post lumbar spinal fusion Z98.1 Documented by User: Nelson French DO 05/30/22 08:16 Physical Exam Urinary Catheter Management: Wharton: Cath Placed During This Visit: yes Data : 05/29/22 12:14 05/29/22 08:47 A&P Assessment and plan (1) Status post lumbar spinal fusion: Status: Acute Plan will check h and H before d/c Coding Level of Care Code Acute Organic Preparation Technician for Chg Fwd Diagnoses Status post lumbar spinal fusion Z98.1
[2022-05-30 07:52] VITALS: PULSE 79; RESP 17; O2SAT 99
[2022-05-30 08:13] VITALS: BP 121/60; PULSE 66; RESP 17; TEMP 36.7; O2SAT 99
--- NOTE | 2022-05-30 10:01 | PC.CHAP ---
Pastoral Care Encounter/Spiritual Assessment Type of Contact [] Declined coagulating bath mixer visit [] Patient/Family/Request visit [] Outpatient visit [] Follow-up visit [] Physician referral [] Code/Alert [x] Routine visit [] Staff referral [] Actively dying [] Patient sleeping [] Family support [] [] Out of room [] Palliative care [] [x] Receiving care in room [] Pre-surgical visit [] Trauma [] Long length of stay [] ICU visit [] Other: Relational/Emotional Strength [] Patient feels connected with others/family/visitors/staff [x] Distress [] Loneliness/isolation [] Abandonment Spirituality of Patient [] Person of Rafia [] Attends Moravian of their Rafia [] Believes in Prayer [] Reads Bible or Restorationism materials [] There are Spiritual issues to be addressed Surgical Lead Interventions [] Prayer [] Active listening [] Non-anxious presence [] Spiritual/emotional support [] Crisis/trauma care [] Spiritual counseling [] Bereavement support [] Provided bereavement packet [] Provided Bible/devotional materials [] Provided toy/stuffed animal, coloring book to patient or family member [] Provided Communion [] Anointing/Kalama [] Salvation [] Completed spiritual assessment [] Other: Impact on Illness or Injury [] Angry [] Fearful [] Anxious [] Often cries [] Exhaustion [] Unable to work [] Unable to attend caodaism [] Unable to walk/stand [] Unable to read [] Unable to drive [] Unable to eat/drink [] Unable to sleep [] Unable to be with family [] Patient intubated [] Other: Summary negative feeling about his health well go home at some point Time spent with patient 10 mins
--- NOTE | 2022-05-30 10:03 | PC.CHAP ---
Pastoral Care Encounter/Spiritual Assessment Type of Contact [] Declined automotive engineering technician visit [] Patient/Family/Request visit [] Outpatient visit [] Follow-up visit [] Physician referral [] Code/Alert [x] Routine visit [] Staff referral [] Actively dying [] Patient sleeping [] Family support [] [] Out of room [] Palliative care [] [x] Receiving care in room [] Pre-surgical visit [] Trauma [] Long length of stay [] ICU visit [] Other: Relational/Emotional Strength [] Patient feels connected with others/family/visitors/staff [x] Distress [] Loneliness/isolation [] Abandonment Spirituality of Patient [] Person of Rafia [] Attends Hindu of their Rafia [] Believes in Prayer [] Reads Bible or Uatsdin materials [] There are Spiritual issues to be addressed Otolaryngologist Interventions [] Prayer [] Active listening [] Non-anxious presence [] Spiritual/emotional support [] Crisis/trauma care [] Spiritual counseling [] Bereavement support [] Provided bereavement packet [] Provided Bible/devotional materials [] Provided toy/stuffed animal, coloring book to patient or family member [] Provided Communion [] Anointing/Albia [] Salvation [] Completed spiritual assessment [] Other: Impact on Illness or Injury [] Angry [] Fearful [] Anxious [] Often cries [] Exhaustion [] Unable to work [] Unable to attend religion [] Unable to walk/stand [] Unable to read [] Unable to drive [] Unable to eat/drink [] Unable to sleep [] Unable to be with family [] Patient intubated [] Other: Summary senior has negative feeling about his health Time spent with patient 10 mins
[2022-05-30 10:08] LABS: Hemoglobin 8.9 g/dL (11.7-16.6)
[2022-05-30 10:09] LABS: Hematocrit 25.7 % (42.0-52.0)
--- NOTE | 2022-05-30 10:54 | PC.NURSE ---
Dr. French notified that patients hgb trending down to 8.9 and he is up walking with PT in the halls. Verbal orders received to discharge.
[2022-05-30 11:04] VITALS: BP 121/60; PULSE 66; RESP 17; TEMP 36.7; O2SAT 99
--- NOTE | 2022-05-30 11:06 | PC.NURSE ---
patient hemovac and Wharton removed, patient tolerated well.
--- NOTE | 2022-05-30 11:41 | PC.NURSE ---
discharge reviewed patient discharge instructions and follow up care/medications. pt denies questions at this time, verbalizes understanding, iv removed. Patient waiting for his son for ride at this time.
--- NOTE | 2022-05-30 11:56 | PC.NURSE ---
pt requesting to not wait on a walker to be brought to patient before discharging, hand script given to patient Dr. Nelson French signed and okay. patient discharged via wheelchair to [facility] per pt request, pt son is on his way.
--- NOTE | 2022-05-31 14:53 | PM.DCS ---
Discharge Providers Date of Admission: 05/29/22 13:50 Date of Discharge: May 30, 2022 Attending Provider at Admission: Nelson French DO Attending Provider at Discharge: Nelson French DO Primary Care Provider: Helen Chanel DO Diagnoses at Discharge Discharge Diagnosis (1) Status post lumbar spinal fusion: Status: Acute Reason for Visit Reason for Visit: Z79.899 - Other care home (current) drug therapy Hospital Course Hospital Course uneventful Physical Exam Urinary Catheter Management: [place]: Cath Placed During This Visit: yes, but has since been removed by the nurse Reason for Continuing Indwelling Catheter: Acute Urinary Retention or Obstruction Urinary Catheter Date of Insertion: 05/29/22 Urinary Catheter Time of Insertion: 09:30 Date Urinary Catheter Removed: 05/30/22 Time Urinary Catheter Discontinued: 10:30 Discharge Data Studies Completed and Pending Completed Studies During Hospitalization Category Date Time Status XR lumbar spine 2-3V* [id number] Routine Exams 05/29/22 Completed Pending at discharge Category Date Time Status PRBC [Leukocyte Reduced RBC] Routine Lab 05/29/22 08:47 Results Type and Screen Routine Lab 05/29/22 08:47 Results Radiology Impressions Lumbar Spine X-Ray 05/29/22 00:00 IMPRESSION: 1. Lumbosacral fusion from L3 to S1 as detailed above. 2. Grade 1 anterolisthesis of L5 on S1 with anterior fixation at this level as discussed above. Laboratory Results WBC 7.9 10^3/uL (4.0-10.0) 05/29/22 12:14 RBC 3.92 10^6/uL (4.1-5.3) L 05/29/22 12:14 Hgb 8.9 g/dL (11.7-16.6) L D 05/30/22 08:57 Hct 25.7 % (42.0-52.0) L D 05/30/22 08:57 MCV 97.2 fl (80-94) H 05/29/22 12:14 MCH 33.4 pg (28.0-34.0) 05/29/22 12:14 MCHC 34.4 g/dL (30.0-36.0) 05/29/22 12:14 RDW 12.8 % (12.1-15.1) 05/29/22 12:14 Plt Count 145 10^3/cmm (130-400) 05/29/22 12:14 MPV 11.0 fL (7.4-10.4) H 05/29/22 12:14 Neut % (Auto) 79.8 % 05/29/22 12:14 Lymph % (Auto) 11.6 % 05/29/22 12:14 [place] % (Auto) 5.8 % 05/29/22 12:14 Eos % (Auto) 0.4 % 05/29/22 12:14 Baso % (Auto) 0.8 % 05/29/22 12:14 Neut # (Auto) 6.30 10^3/uL (1.8-7.7) 05/29/22 12:14 Lymph # (Auto) 0.9 10^3/uL (0.8-4.8) 05/29/22 12:14 [place] # (Auto) 0.5 10^3/uL (0.2-0.9) 05/29/22 12:14 Eos # (Auto) 0.0 10^3/uL (0.0-0.8) 05/29/22 12:14 Baso # (Auto) 0.1 10^3/uL (0.0-0.1) 05/29/22 12:14 Nucleated RBC % (auto) 0 % 05/29/22 12:14 Nucleated RBCs # 0.0 /100WBC 05/29/22 12:14 Sodium 138 mmol/L (136-145) 05/29/22 08:47 Potassium 4.5 mmol/L (3.5-5.1) 05/29/22 08:47 Chloride 100 mmol/L (98-107) 05/29/22 08:47 Carbon Dioxide 27 mmol/L (22-29) 05/29/22 08:47 Anion Gap 15.5 (5-19) 05/29/22 08:47 BUN 15 mg/dL (8-23) 05/29/22 08:47 Creatinine 0.7 mg/dL (0.7-1.2) 05/29/22 08:47 GFR Calculation 114.6 mL/min (90-130) 05/29/22 08:47 Glucose 95 mg/dL (65-115) 05/29/22 08:47 POC Glucose 232 mg/dL (70-110) H 05/29/22 20:50 Calculated Osmolality 287 mOsm/kg (285-295) 05/29/22 08:47 Calcium 9.5 mg/dL (8.5-10.5) 05/29/22 08:47 Blood Type O Negative 05/29/22 08:47 Rho(D) Type Negative 05/29/22 08:47 Antibody Screen Negative 05/29/22 08:47 Crossmatch See Detail 05/29/22 08:47 Vitals Last Vital Signs Temp 98.1 F 05/30/22 11:04 Pulse 66 05/30/22 11:04 Resp 17 05/30/22 11:04 BP 121/60 05/30/22 11:04 Pulse Ox 99 05/30/22 11:04 O2 Del Method 05/30/22 08:13 O2 Flow Rate 3 05/29/22 20:00 Discharge Plan Discharge Patient Disposition: Home Condition: Stable Prescriptions: New hydrocodone-acetaminophen 5-325 mg Tablet 1 - 2 tab PO Q4H PRN (Reason: Moderate To Severe Pain) Qty: 40 0RF Continued albuterol sulfate 90 mcg/actuation HFA aerosol inhaler 2 inh inhalation Q4-5H PRN (Reason: Wheezing) Trelegy Ellipta 100-62.5-25 mcg blister with device 1 inh inhalation DAILY Held meloxicam 15 mg tablet 15 mg PO DAILY Hold Instructions: Resume on 07/02/22. Discharge Orders: Discharge Order (Routine); Ordered 05/30/22 Ordered By: Antonio Coley Other Ambulatory Orders: DME: Walker (Order) Location: None Selected Ordered By: Nelson French Referrals: Nelson French DO [Physician] - 06/13/22 9:00 am Discharge Diet: Advance as tolerated Discharge Activity: Limit activity as instructed Patient Instructions: Hydrocodone/Acetaminophen (By mouth), Lumbar Spinal Fusion (DC), Opioid Safety Activity Restrictions/Additional Instructions: Thank you for choosing [facility] for your care! The following is a list of instructions, from your provider, to follow upon your discharge to ensure you have the optimal recovery from your recent injury or surgery. Follow-up care is a roque part of your treatment and safety. Be sure to make and go to all appointments and call your doctor if you are having problems. If you do not already have a follow-up appointment made, call Dr. French's] office in the next 1-3 days to make follow up appointment for [1-2] weeks at [phone]. It is also a good idea to know your test results and keep a list of the medicines you take. Medications will be prescribed for you at your provider's discretion. These medications are to be used as instructed; if they are taken more often that prescribed they will not be refilled early and in most cases will not be refilled at all. > When a refill is needed, you should contact kelly gunter 2-3 business days before your prescription runs out. Medications will NOT be refilled by telecommunications equipment installer providers after hours! > Many pain medications contain Tylenol (Acetaminophen). Do not consume more than 4,000 mg of Tylenol per day in total with any combination of medications. > Pain medications can cause constipation. Please use an over the counter stool softener as directed, while taking pain medications. Consult your local pharmacist with questions or recommendations on stool softeners. If constipation persists, contact our office or your primary care provider. > While under our care, you are not to receive pain medications or other controlled substances from any other provider unless our office is notified and approves. Any attempts to do so will result in refusal to prescribe any further pain medications and possible dismissal from our practice. ? Walking is essential for the healing process after surgery. We would like you to slowly advance your walking. This should be done on relatively flat clear ground (inside or out) or can be done on a treadmill. Remember this goal does not have to happen all at once, slowly increase your distance and duration. This can be broken into more more than one walk per day as tolerated. Patients who walk as directed after surgery rarely require Physical Therapy. In the unlikely event this issue arises your provider will direct hospital staff to make the appropriate arrangements. ? No lifting over 5 pounds {a gallon of milk) or bending/twisting until further notice. Each of these activities places an unnecessary amount of stress onto the body and can impede the delicate healing process. > Instead of bending at the waist, keep your back straight and bend at the knees. > Instead of twisting your torso, keep your back straight and turn your entire body with your feet. ? You may sleep in any position which makes you comfortable. Many patients find comfort sleeping in a reclining chair. It is not abnormal to have difficulty sleeping for the first several weeks following your surgery. We recommend trying Benadry! or Tylenol PM as directed to help with your sleeping difficulties. Both medications are over the counter and available without prescription. ? NO SMOKING!!! Smoking dramatically increases the probability of developing postoperative wound infections. ? Common complaints after lumbar and/or thoracic spine surgery include, but are not limited to: numbness and/or tingling in the legs, pain around the incision and surrounding tissues, muscle spasms, or stiffness of the middle to low back. Contact our office if these symptoms persist or if an acute change occurs. ? No driving for the first 3-5days, and not while taking narcotics until seen at your follow-up appointment and cleared. There are no restrictions for riding on short trips, however if you take a longer trip, arrangements should be made to make regular stops to get out of the vehicle and stretch . ? Swelling is an unfortunate event that will take place with any surgery and is the primary source of your postoperative discomfort. While walking and regular approved activities helps control inflammation, there are additional steps you can take to minimize swelling. > Place ice over the surgical site and surrounding tissue for twenty minutes, followed by applying a low/medium heat (heating pad) for an additional twenty minutes every 1-2 hours as needed for painrelief. > You may use of over the counter anti-inflammatory medications (Ibuprofen, Motrin, Aleve, Advil, etc) as directed on the package label. These types of medicines will significantly reduce the amount of discomfort you experience after surgery from swelling. It should be noted that if you have and allergy to any of these medications, or a history of ulcers or kidney disease you should consult you primary care provider prior to starting these medications. Discharge Attestations Time Spent in Discharge Care*: less than 30 min Quality Metrics Clinical Quality Measures [ No reported AMI, CVA or VTE this stay] Coding Level of Care Code Acute [facility] DC note Diagnoses Status post lumbar spinal fusion Z98.1
== END 2022-05-30 12:00 | disposition home or self-care (01) | DRG 460 ==
LOC: MEDSURG 13:52
PROVIDERS: Anesthesiology; Admitting Provider Orthopaedic Surgery; PCP Family Medicine; Visit Provider Orthopaedic Surgery
PROC: 0SG1071 Fusion of 2 or more Lumbar Vertebral Joints with Autologous Tissue Substitute, Posterior Approach, Posterior Column, Open Approach (ICD-10-PCS; principal; 2022-05-29 09:40)
PROC: 0SG1071 Fusion of 2 or more Lumbar Vertebral Joints with Autologous Tissue Substitute, Posterior Approach, Posterior Column, Open Approach (ICD-10-PCS; CPT 63005; 2022-05-29 09:40)
DX: M48.062 Spinal stenosis, lumbar region with neurogenic claudication (principal); G89.29 Other chronic pain; F17.210 Nicotine dependence, cigarettes, uncomplicated
CPT/HCPCS: 36415; 36416; 51702; 72100; 80048; 82962; 85014; 85018; 85025; 86850; 86900; 86920; 93005; 97161; 97530; C1713; J0330; J1170; J1644; J1885; J2250; J2270; J2370; J2405; J2704; J2710; J3010; J3370; J3490; J7030; P9041

== ENCOUNTER → 2022-06-13 09:15 | Outpatient (BNVA) | payer MEDICARE, MEDICAID, SELFPAY | PROVIDERS: PCP Family Medicine; Visit Provider Physician Assistant | DX: Z98.1 Arthrodesis status (principal) | CPT/HCPCS: 72100; 99024 ==

== ENCOUNTER → 2022-06-27 09:09 | Outpatient (BNVA) | payer MEDICARE, MEDICAID, SELFPAY | PROVIDERS: PCP Family Medicine; Visit Provider Physician Assistant | DX: Z47.89 Encounter for other orthopedic aftercare (principal); Z98.1 Arthrodesis status | CPT/HCPCS: 72100; 99024 ==

== ENCOUNTER → 2022-08-08 08:15 | Outpatient (BNVA) | payer MEDICARE, MEDICAID, SELFPAY | PROVIDERS: PCP Family Medicine; Visit Provider Physician Assistant | DX: Z47.89 Encounter for other orthopedic aftercare (principal); Z98.1 Arthrodesis status | CPT/HCPCS: 72100; 99024 ==

== ENCOUNTER 2022-08-19 06:00 | Outpatient (RCR) | payer MEDICARE, MEDICAID, SELFPAY | END 2022-09-02 23:59 | disposition home or self-care (01) | LOC: TPT 06:00 | PROVIDERS: PCP Family Medicine; Visit Provider Physician Assistant | DX: Z98.1 Arthrodesis status (principal) | CPT/HCPCS: 97110; 97163 ==

== ENCOUNTER → 2022-08-26 09:10 | Outpatient (BNVA) | payer MEDICARE, MEDICAID, SELFPAY | PROVIDERS: PCP Family Medicine; Visit Provider Nurse Practitioner Family | DX: R06.00 Dyspnea, unspecified (principal); E55.9 Vitamin D deficiency, unspecified; R73.9 Hyperglycemia, unspecified; Z13.6 Encounter for screening for cardiovascular disorders; M25.50 Pain in unspecified joint; L98.9 Disorder of the skin and subcutaneous tissue, unspecified; F17.219 Nicotine dependence, cigarettes, with unspecified nicotine-induced disorders; M25.562 Pain in left knee; J44.9 Chronic obstructive pulmonary disease, unspecified; R01.1 Cardiac murmur, unspecified; Z12.2 Encounter for screening for malignant neoplasm of respiratory organs; Z53.20 Procedure and treatment not carried out because of patient's decision for unspecified reasons; M54.16 Radiculopathy, lumbar region | CPT/HCPCS: 80053; 80061; 82306; 82607; 83036; 83735; 84439; 84443; 84550; 85025; 85651; 86038; 86140; 86200; 86431 ==

== ENCOUNTER 2022-09-03 06:00 | Outpatient (RCR) | payer MEDICARE, MEDICAID, SELFPAY | END 2022-10-02 23:59 | disposition home or self-care (01) | LOC: TPT 06:00 | PROVIDERS: PCP Family Medicine; Visit Provider Physician Assistant | DX: Z98.1 Arthrodesis status (principal) | CPT/HCPCS: 97110 ==

== ENCOUNTER 2022-09-30 06:26 | Outpatient (CLI) | payer MEDICARE, MEDICAID, SELFPAY ==
--- NOTE | 2022-09-30 06:30 | USCV_ITS ---
Jose Rodas Age: 62 Gender: M : 1960 Exam Date: 09/30/2022 07:24 Ordering Phys: Avril Alvarado PATTERN CHANGER Technologist: Exam Location: [facility] Indication: Murmur BP: 130 / 75 HR: 73 Rhythm: Sinus Technical Quality: Adequate MEASUREMENTS (Male / Female) Normal Values 2D ECHO LV Diastolic Diameter PLAX 3.4 cm 4.2 - 5.9 / 3.9 - 5.3 cm LV Systolic Diameter PLAX 2.2 cm IVS Diastolic Thickness 0.8 cm 0.6 - 1.0 / 0.6 - 0.9 cm IVS Systolic Thickness 1.1 cm LVPW Diastolic Thickness 1.0 cm 0.6 - 1.0 / 0.6 - 0.9 cm LVPW Systolic Thickness 1.3 cm LVOT Diameter 2.0 cm LV Ejection Fraction 2D Teich 65.2 % LV Ejection Fraction MOD 2C 78.1 % LV Ejection Fraction 2C AL 79.6 % LA Diameter 3.1 cm IVC Diameter 1.2 cm M-MODE Aortic Annulus Diameter 3.6 cm LA Ao Ratio MM 1.0 MV E Point Septal Separation 1.8 cm DOPPLER AV Peak Velocity 310.0 cm/s LVOT Peak Velocity 119.0 cm/s AV Area Cont Eq vti 1.2 cm squared AV Area Cont Eq pk 1.2 cm squared MV Area PHT 5.0 cm squared Mitral E to A Ratio 1.1 MV E' Velocity 47.5 cm/s Mitral E to MV E' Ratio 9.2 Mitral E to LV E' Lateral Ratio 10.1 Mitral E to LV E' Septal Ratio 8.6 TR Peak Velocity 286.0 cm/s TR Peak Gradient 32.7 mmHg RV Acceleration Time 0.2 s FINDINGS Left Ventricle Normal left ventricular size, systolic function and wall thickness, with no regional wall motion abnormalities. Left ventricular ejection fraction is estimated at 70 %. Normal diastolic function. Right Ventricle Normal right ventricular size and systolic function. RVSP could not be calculated due to incomplete tricuspid regurgitation velocity profile. Right Atrium Normal right atrial size. Left Atrium Normal left atrial size. Mitral Valve Structurally normal mitral valve. No mitral valve stenosis. Trace mitral valve regurgitation. Aortic Valve Aortic valve not well visualized. Aortic valve sclerosis without stenosis. Mild aortic valve regurgitation. Tricuspid Valve Structurally normal tricuspid valve. Pulmonic Valve Pulmonic valve not well visualized. Pericardium No pericardial effusion. Aorta Normal-sized aortic root. IVC Normal IVC dimension with >50% respiratory change of the inferior vena cava. CONCLUSIONS 1. Normal left ventricular size, systolic function and wall thickness, with no regional wall motion abnormalities. Left ventricular ejection fraction is estimated at 70 %. Normal diastolic function. 2. Normal right ventricular size and systolic function. 3. Aortic valve sclerosis without stenosis. Mild aortic valve regurgitation. 4. No prior similar studies to compare. Briseida House MD (Electronically Signed) Final Date: 02 October 2022 09:08 S
--- NOTE | 2022-09-30 07:30 | CT_ITS ---
WS: [id number] LDCT LUNG CANCER SCREENING HISTORY: F17.219 - Nicotine dependence, cigarettes. TECHNIQUE: Axial imaging performed from the apices to 1 cm below the costophrenic angles. Coronal and sagittal reformats are submitted with axial MIP series. All CT scans at [facility] use at least one of these dose optimization techniques: automated exposure control; mA and/or kV adjustment per patient size (includes targeted exams where dose is matched to clinical indication); or iterativ e reconstruction. DLP: 78.31 mGy.cm DIvol: Mean CTDIvol: 1.60 (mGy) COMPARISON: None available. Diagnostic quality: Satisfactory Lung Nodules: None. Lungs: Mild hyperinflation. Heart: Heart is top normal size. Mild coronary artery calcification. No pericardial effusion. Other findings: Mild atherosclerosis aorta. CT/CT lung screening [id number] IMPRESSION: LUNG-RADS: 1-Negative FOLLOW UP: 12 Month: Continue annual screening with LDCT OTHER FINDINGS (S MODIFIER): None.
== END 2022-09-30 06:27 | disposition home or self-care (01) ==
LOC: RAD 06:29
PROVIDERS: PCP Nurse Practitioner Family; Visit Provider Nurse Practitioner Family
DX: Z12.2 Encounter for screening for malignant neoplasm of respiratory organs (principal); F17.219 Nicotine dependence, cigarettes, with unspecified nicotine-induced disorders; R01.1 Cardiac murmur, unspecified; I70.0 Atherosclerosis of aorta
CPT/HCPCS: 71271; 93306

== ENCOUNTER → 2022-10-24 09:34 | Outpatient (BNVA) | payer MEDICARE, MEDICAID, SELFPAY | PROVIDERS: PCP Nurse Practitioner Family; Visit Provider Internal Medicine Cardiovascular Disease | DX: R01.1 Cardiac murmur, unspecified (principal); I73.9 Peripheral vascular disease, unspecified; I35.8 Other nonrheumatic aortic valve disorders; I35.1 Nonrheumatic aortic (valve) insufficiency; J44.9 Chronic obstructive pulmonary disease, unspecified; M19.90 Unspecified osteoarthritis, unspecified site; F17.210 Nicotine dependence, cigarettes, uncomplicated | CPT/HCPCS: 99204 ==

== ENCOUNTER 2023-02-13 09:01 | Outpatient (CLI) | payer MEDICARE, MEDICAID, SELFPAY ==
--- NOTE | 2023-02-13 | USCV_ITS ---
Jose Rodas Age: 62 Gender: M : 1960 Exam Date: 02/13/2023 09:25 Ordering Phys: Briseida House MD ([email or web address]) Technologist: Agapito Oliver Clinical Pathologist Exam Location: [facility] Indication: resting and exercise RIGHT LEFT Brachial 146.00 mmHg Brachial 124.00 mmHg Pressure (mmHg) Waveform Pressure (mmHg) Waveform 132.00 JUKEBOX ROUTEMAN 33.00 131.00 DPA 61.00 0.90 Ankle/Brachial Index 0.42 1.11 Post-Exercise Ankle Brachial Index 0.54 148.00 Pre-Exercise Toe Pressure 67.00 1.01 Pre-Exercise Toe/Brachial Index 0.46 FINDINGS Resting IMAN on the right zero 0.9 and on the left with 0.42 Exercise IMAN of the right was 1.11 and on the left was 0.54 Resting TBI on the right side is 1.01 and in the left side with 0.46 CONCLUSIONS 1. Normal exercise IMAN and resting TBI on the right side suggesting no significant arterial obstruction. 2. Abnormal resting IMAN on the left side with a slight improvement post exercise suggesting moderately severe peripheral artery disease. 3. Abnormal resting TBI on the left side suggesting moderate peripheral artery disease Dr Volodymyr Pacheco MD [facility] (Electronically Signed) Final Date: 13 February 2023 19:27 S
== END 2023-02-13 09:02 | disposition home or self-care (01) ==
LOC: RAD 09:07
PROVIDERS: PCP Nurse Practitioner Family; Visit Provider Internal Medicine Cardiovascular Disease
DX: I73.9 Peripheral vascular disease, unspecified (principal)
CPT/HCPCS: 93922